=== PATIENT | female | born 1935 | race Asian ===

== ENCOUNTER 2016-10-26 10:42 | Emergency (ER) | payer OTHER ==
[~2016-10-26] VITALS: Ht 154.9 cm; Wt 56.2 kg
[~2016-10-26 10:42] MED LIST: LOVASTATIN40 M1 PO
[2016-10-26 11:42] LABS: PLATELET COUNT 214 x10^3mcL (130-400)
[2016-10-26 11:45] LABS: BASOPHIL % 0.3 % (0-2); RED CELL DISTRIBUTION WIDTH 14.5 % (11.5-14.5)
[2016-10-26 11:50] LABS: CARBON DIOXIDE 34.8 mmol/L (21-32); CHLORIDE SERUM 105 mmol/L (98-107); CREATININE SERUM 0.8 mg/dL (0.6-1.0); GLUCOSE SERUM 102 mg/dL (74-106); POTASSIUM SERUM 4.3 mmol/L (3.5-5.1); SODIUM SERUM 142 mmol/L (136-145)
[2016-10-26 11:55] LABS: ALBUMIN 3.4 g/dL (3.4-5.0); ALKALINE PHOSPHATASE 45 U/L (46-116); ALT/SGPT 27 U/L (14-59); AST/SGOT 21 U/L (15-37); BILIRUBIN TOTAL 0.43 mg/dL (0.20-1.00); LIPASE 172 IU/L (73-393); TOTAL PROTEIN, SERUM 7.4 g/dL (6.4-8.2)
[2016-10-26 12:47] LABS: microscopic required? YES; urine erythrocyte TRACE (NEGATIVE)
[2016-10-26 13:54] VITALS: BP 140/69
== END 2016-10-26 13:54 | disposition home or self-care (01) ==
LOC: ED 10:42
PROVIDERS: Emergency Medicine
DX: N39.0 Urinary tract infection, site not specified (principal); I10 Essential (primary) hypertension; E78.5 Hyperlipidemia, unspecified; Z79.899 Other long term (current) drug therapy; Z88.0 Allergy status to penicillin
CPT/HCPCS: J1885; J2405; J3010; J7030

== ENCOUNTER 2019-10-17 11:23 | Inpatient (IN) | payer OTHER, SELFPAY ==
[~2019-10-17] VITALS: Ht 157.5 cm; Wt 50.8 kg
[~2019-10-17 11:23] MED LIST changes: +ALTOPREV40 M2; -LOVASTATIN40 M1 PO
[2019-10-17 11:24] VITALS: Ht 157.5 cm; Wt 50.8 kg
[2019-10-17 12:47] LABS: BASOPHIL % 0.1 % (0-2); PLATELET COUNT 187 x10^3mcL (130-400); RED CELL DISTRIBUTION WIDTH 13.8 % (11.5-14.5)
[2019-10-17 12:59] LABS: CALCIUM 8.1 mg/dL (8.5-10.1); CARBON DIOXIDE 28.3 mmol/L (21-32); CHLORIDE SERUM 98 mmol/L (98-107); CREATININE SERUM 0.8 mg/dL (0.6-1.0); GLUCOSE SERUM 162 mg/dL (74-106); POTASSIUM SERUM 3.7 mmol/L (3.5-5.1); SODIUM SERUM 134 mmol/L (136-145)
[2019-10-17 13:02] LABS: UA SPECIFIC GRAVITY >=1.030 (1.005-1.035); microscopic required? YES; urine erythrocyte TRACE (NEGATIVE)
[2019-10-17 13:12] LABS: ALKALINE PHOSPHATASE 78 U/L (46-116); ALT/SGPT 169 U/L (14-59); AST/SGOT 87 U/L (15-37); BILIRUBIN TOTAL 0.4 mg/dL (0.20-1.00); CHOLESTEROL 160 mg/dL (<200); HDL CHOLESTEROL 59 mg/dL (40-60); LIPASE 178 IU/L (73-393); T4(THYROXINE) 9.1 ug/dL (4.7-13.3)
[2019-10-17 13:16] LABS: ALBUMIN 2.8 g/dL (3.4-5.0)
[2019-10-17 14:28] VITALS: BP 114/66
[2019-10-17 19:33] LABS: APPEARANCE FLUID BLOODY; COLOR FLUID RED; SITE FLUID RIGHT; SOURCE FLUID PLEURAL
[2019-10-17 19:39] LABS: LYMPHOCYTE FLUID 38 %; MONOCYTE FLUID 72 %; RBC FLUID 192800 /cumm; WBC FLUID 107 /cumm
[2019-10-17 20:00] VITALS: BP 123/76
[2019-10-18 06:20] VITALS: BP 111/68
[2019-10-18 08:32] LABS: PLATELET COUNT 154 x10^3mcL (130-400); RED CELL DISTRIBUTION WIDTH 13.9 % (11.5-14.5)
[2019-10-18 08:52] LABS: ALBUMIN 3.5 g/dL (3.4-5.0); ALKALINE PHOSPHATASE 52 U/L (46-116); ALT/SGPT 105 U/L (14-59); AST/SGOT 51 U/L (15-37); BILIRUBIN TOTAL 0.77 mg/dL (0.20-1.00); CALCIUM 8.3 mg/dL (8.5-10.1); CARBON DIOXIDE 30.1 mmol/L (21-32); CHLORIDE SERUM 105 mmol/L (98-107); CREATININE SERUM 0.8 mg/dL (0.6-1.0); GLUCOSE SERUM 94 mg/dL (74-106); MAGNESIUM 2.1 mg/dL (1.8-2.4); POTASSIUM SERUM 3.4 mmol/L (3.5-5.1); SODIUM SERUM 141 mmol/L (136-145); TOTAL PROTEIN, SERUM 6.5 g/dL (6.4-8.2)
[2019-10-18 09:48] VITALS: BP 137/98
[2019-10-18 12:12] LABS: BAND NEUTROPHIL 1 % (0-10); MONOCYTE 18 % (0-7); SEGMENTED NEUTROPHILS 60 % (37-75)
[2019-10-18 12:13] LABS: PLATELET MORPHOLOGY PLATELETS NORMAL; burr cell (echinocyte) 1+; rbc morphology (normal/abnorm) ABNORMAL (NORMAL)
[2019-10-18 12:59] VITALS: BP 149/111
[2019-10-18 16:54] VITALS: BP 129/76
[2019-10-18 21:09] VITALS: BP 151/97
[2019-10-19 06:23] VITALS: BP 116/77
[2019-10-19 07:04] LABS: ALKALINE PHOSPHATASE 50 U/L (46-116); ALT/SGPT 90 U/L (14-59); AST/SGOT 34 U/L (15-37); BILIRUBIN TOTAL 0.4 mg/dL (0.20-1.00); CALCIUM 8.9 mg/dL (8.5-10.1); CARBON DIOXIDE 38.6 mmol/L (21-32); CHLORIDE SERUM 101 mmol/L (98-107); CREATININE SERUM 0.9 mg/dL (0.6-1.0); GLUCOSE SERUM 110 mg/dL (74-106); MAGNESIUM 1.9 mg/dL (1.8-2.4); POTASSIUM SERUM 3.7 mmol/L (3.5-5.1); SODIUM SERUM 143 mmol/L (136-145); TOTAL PROTEIN, SERUM 6.2 g/dL (6.4-8.2)
[2019-10-19 08:36] LABS: PLATELET COUNT 176 x10^3mcL (130-400)
[2019-10-19 08:39] LABS: ATYPICAL LYMPH 0 %; BASOPHIL 1 % (0-2); METAMYELOCTE 0 % (0-2); MONOCYTE 19 % (0-7); MYELOCYTE 0 % (0-2); SEGMENTED NEUTROPHILS 67 % (37-75)
[2019-10-19 08:40] LABS: rbc morphology (normal/abnorm) ABNORMAL (NORMAL)
[2019-10-19 09:00] VITALS: BP 115/56
[2019-10-19 16:04] VITALS: BP 103/61
[2019-10-19 21:30] VITALS: BP 130/71
[2019-10-20 05:25] VITALS: BP 99/52
[2019-10-20 08:33] LABS: ALKALINE PHOSPHATASE 56 U/L (46-116); ALT/SGPT 83 U/L (14-59); AST/SGOT 33 U/L (15-37); BILIRUBIN TOTAL 0.6 mg/dL (0.20-1.00); CALCIUM 9.3 mg/dL (8.5-10.1); CARBON DIOXIDE 38.6 mmol/L (21-32); CHLORIDE SERUM 98 mmol/L (98-107); CREATININE SERUM 0.9 mg/dL (0.6-1.0); GLUCOSE SERUM 125 mg/dL (74-106); POTASSIUM SERUM 3.1 mmol/L (3.5-5.1); SODIUM SERUM 140 mmol/L (136-145); TOTAL PROTEIN, SERUM 6.8 g/dL (6.4-8.2)
[2019-10-20 09:29] VITALS: BP 115/67
[2019-10-20 09:36] LABS: BASOPHIL % 0.1 % (0-2); PLATELET COUNT 208 x10^3mcL (130-400); RED CELL DISTRIBUTION WIDTH 14.2 % (11.5-14.5)
[2019-10-20 14:29] VITALS: BP 103/69
[2019-10-20 17:40] VITALS: BP 108/67
[2019-10-20 21:11] VITALS: BP 140/59
[2019-10-21 05:15] VITALS: BP 112/67
[2019-10-21 07:17] LABS: PLATELET COUNT 178 x10^3mcL (130-400); RED CELL DISTRIBUTION WIDTH 14.2 % (11.5-14.5)
[2019-10-21 07:21] LABS: CARBON DIOXIDE 36.9 mmol/L (21-32); CHLORIDE SERUM 95 mmol/L (98-107); CREATININE SERUM 0.9 mg/dL (0.6-1.0); GLUCOSE SERUM 128 mg/dL (74-106); POTASSIUM SERUM 3.2 mmol/L (3.5-5.1); SODIUM SERUM 134 mmol/L (136-145)
[2019-10-21 07:39] VITALS: BP 127/67
[2019-10-21] MEDS ORDERED: LEVAQUIN500 M1 PO (08:56)
[2019-10-21] MEDS ORDERED: PROMETH-CODEIN 65 ML PO (08:57)
[2019-10-21 09:57] LABS: SEGMENTED NEUTROPHILS 71 % (37-75)
[2019-10-21 09:58] LABS: ATYPICAL LYMPH 0 %; BAND NEUTROPHIL 1 % (0-10); BASOPHIL 0 % (0-2); MONOCYTE 20 % (0-7); rbc morphology (normal/abnorm) ABNORMAL (NORMAL)
[2019-10-21 09:59] LABS: PLATELET MORPHOLOGY PLATELETS DECREASED
[2019-10-21 12:06] VITALS: BP 117/59
[2019-10-21 14:04] VITALS: BP 117/59
== END 2019-10-21 15:20 | disposition home or self-care (01) | DRG 871 ==
LOC: ED 11:23 → DU 12:53
PROVIDERS: Emergency Medicine; Internal Medicine Pulmonary Disease; ADMIT Internal Medicine Pulmonary Disease
PROC: 0W993ZZ Drainage of Right Pleural Cavity, Percutaneous Approach (ICD-10-PCS; principal; 2019-10-17)
DX: A41.9 Sepsis, unspecified organism (principal); I21.4 Non-ST elevation (NSTEMI) myocardial infarction; J96.01 Acute respiratory failure with hypoxia; C79.9 Secondary malignant neoplasm of unspecified site; J91.0 Malignant pleural effusion; I48.91 Unspecified atrial fibrillation; Z68.30 Body mass index [BMI] 30.0-30.9, adult; Z85.3 Personal history of malignant neoplasm of breast; Z90.10 Acquired absence of unspecified breast and nipple; Z03.818 Encounter for observation for suspected exposure to other biological agents ruled out
CPT/HCPCS: 32555; 36600; 83880; 87804; 88344; 94150; 97116-GP; C1729; G0378; J1644; J1956; J2405; J3370; J3490; J3535; J7030; J7040; P9047; Q0092